=== PATIENT | male | born 1995 | race Two or more races ===

== ENCOUNTER 2024-04-08 15:31 | Emergency (ER) | payer OTHER ==
[~2024-04-08] VITALS: Ht 175.3 cm; Wt 81.6 kg
[2024-04-08 15:42] VITALS: BP 126/68; TEMP 97.9; O2SAT 99
[2024-04-08] MEDS ORDERED: AMOX/CLAVULANATE 875 MG TABLET ONE (16:04)
[2024-04-08] MEDS: AMOX/CLAVULANATE 875 MG TABLET PO ONE (16:06)
[2024-04-08] MEDS ORDERED: AMOX-430 PO (16:09)
[2024-04-08] MEDS ORDERED: TDAP [DIPH/PERTUSSIS/TET] 0.5 ML VIAL IM ONE (16:18)
[2024-04-08] MEDS: TDAP [DIPH/PERTUSSIS/TET] 0.5 ML VIAL IM ONE (16:31)
== END 2024-04-08 16:22 ==
LOC: ER 15:34
DX: S61.250A Open bite of right index finger without damage to nail, initial encounter (principal); W50.3XXA Accidental bite by another person, initial encounter; V43.52XA Car driver injured in collision with other type car in traffic accident, initial encounter; Y93.89 Activity, other specified; Y92.488 Other paved roadways as the place of occurrence of the external cause; Y99.8 Other external cause status
CPT/HCPCS: 90715